=== PATIENT | female | born 1935 | race Hispanic/Latino ===

== ENCOUNTER 2016-10-19 10:53 | Emergency (ER) | payer MEDICARE, OTHER ==
[2016-10-19 10:53] VITALS: BMI 21.2
[2016-10-19 11:00] VITALS: TEMP 98.2
--- NOTE | 2016-10-19 11:11 | ED PDOC ---
Syncope/Near Syncope/Dizziness Time Seen by Provider: 10/19/16 10:57 Chief Complaint (Nursing): Weakness/Neurological Deficit Chief Complaint (Provider): Weakness/Neurological Deficit History Per: Patient History/Exam Limitations: no limitations Onset/Duration Of Symptoms: Hrs (x1) Current Symptoms Are (Timing): Still Present Additional Complaint(s): Lissette Henry is a 81 year old female with a past medical history of [place] Palsy , which resolved completely, as well as a brain tumor presenting to the ED for an evaluation of a new onset of right sided facial weakness occurring 1 hour prior to arrival. The patient denies headache, peripheral weakness, or paresthesia. She reports having difficulty closing her right eye with increased tearing and difficulty smiling on the right side of her face. PMD: Jeffrey El MD Past Medical History Reviewed: Historical Data, Nursing Documentation, Vital Signs Vital Signs: Last Vital Signs Temp 98.2 F 10/19/16 10:58 Pulse 73 10/19/16 10:58 Resp 18 10/19/16 10:58 BP 145/58 L 10/19/16 10:58 Pulse Ox 97 10/19/16 10:58 - Medical History PMH: Anxiety, CHF, Depression Denies: Chronic Kidney Disease Other PMH: brain tumor and resolved clay's palsy - Family History Family History: States: Unknown Family Hx - Home Medications Home Medications: Ambulatory Orders Medication Instructions Recorded ALPRAZolam [Xanax] 1 mg PO DAILY 09/27/15 Digoxin [Digitek] 250 mcg PO DAILY 09/27/15 Modafinil [Modafinil] 200 mg PO DAILY 09/27/15 Olanzapine [Zyprexa] 10 mg PO DAILY 09/27/15 Omeprazole [Omeprazole] 20 mg PO DAILY 09/27/15 Dextran 70/Hypromellose/Pf 1 each OD Q4 #1 droperette 10/19/16 [Artificial Tears Drops] Valacyclovir HCl [Valtrex] 1 gm PO Q8 #30 tablet 10/19/16 predniSONE [predniSONE Tab] 10 mg PO TID #15 tab 10/19/16 - Allergies Allergies/Adverse Reactions: Allergies Allergy/AdvReac Type Severity Reaction Status Date / Time phenytoin [From Dilantin] Allergy RASH Verified 10/19/16 10:58 Review of Systems ROS Statement: Except As Marked, All Systems Reviewed And Found Negative Neurological: Positive for: Weakness (right sided facial weakness ), Other ( difficulty closing right eye with increased tearing and difficulty smiling on right side of face ) Physical Exam - Reviewed Nursing Documentation Reviewed: Yes Vital Signs Reviewed: Yes - Physical Exam Appears: Positive for: Non-toxic, No Acute Distress Head Exam: Positive for: ATRAUMATIC, NORMOCEPHALIC Eye Exam: Positive for: Normal appearance, EOMI, PERRL (PERRLA ) Neck: Positive for: Normal Cardiovascular/Chest: Positive for: Regular Rate, Rhythm. Negative for: Murmur Respiratory: Positive for: Normal Breath Sounds. Negative for: Respiratory Distress Neurologic/Psych: Positive for: Alert, Oriented, Motor/Sensory Deficits (right facial weakness with inability to close right eye; peripheral motor 4/4 bilaterally; sensations intact to upper and lower extremities bilaterally) - ECG O2 Sat by Pulse Oximetry: 97 (RA) Pulse Ox Interpretation: Normal Medical Decision Making Medical Decision Making: Time: 10:57 Impression: Weakness/neurological deficit Plan: * CT Head W/O Contrast * Reevaluation Scribe Attestation: Documented by Tyra Hill, acting as a scribe for Nilton Hewitt MD. Provider Scribe Attestation: All medical record entries made by the Scribe were at my direction and personally dictated by me. I have reviewed the chart and agree that the record accurately reflects my personal performance of the history, physical exam, medical decision making, and the department course for this patient. I have also personally directed, reviewed, and agree with the discharge instructions and disposition. Disposition - Clinical Impression Clinical Impression: Clay's palsy - Patient ED Disposition Is Patient to be Admitted: No Counseled Patient/Family Regarding: Studies Performed, Diagnosis, Need For Followup, Rx Given - Disposition Referrals: Ez Griffith MD [Staff Provider] - Jeffrey El MD [Family Provider] - Disposition: Routine/Home Disposition Time: 12:16 Condition: FAIR Prescriptions: Dextran 70/Hypromellose/Pf [Artificial Tears Drops] 1 each OD Q4 #1 droperette predniSONE [predniSONE Tab] 10 mg PO TID #15 tab Valacyclovir HCl [Valtrex] 1 gm PO Q8 #30 tablet Instructions: Clay Palsy (ED) Forms: [employer] (Chinese)
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
[2016-10-19 12:55] VITALS: BP 123/78; PULSE 78; RESP 19; O2SAT 100
== END 2016-10-19 12:30 | disposition home or self-care (01) ==
LOC: H.ER 10:53
DX: G51.0 Bell's palsy (principal); D32.0 Benign neoplasm of cerebral meninges; F32.9 Major depressive disorder, single episode, unspecified; F41.9 Anxiety disorder, unspecified

== ENCOUNTER 2016-11-06 12:31 | Inpatient (IN) | payer MEDICARE, OTHER ==
[2016-11-06 12:31] VITALS: BMI 21.2
[2016-11-06 12:56] LABS: BASO # 0.1 K/uL (0.0-0.2); BASO % 0.6 % (0.0-2.0); EOS % 0.4 % (0.0-4.0); HEMATOCRIT 41.1 % (34.0-47.0); LYMPH # 3.4 K/uL (1.0-4.3); MEAN CELL VOLUME 88.3 fl (81.0-99.0); MEAN CORPUSCULAR HEMOGLOBIN 30.3 pg (27.0-31.0); MEAN CORPUSCULAR HGB CONC 34.3 g/dL (33.0-37.0); MEAN PLATELET VOLUME 8.3 fl (7.2-11.7); MONO # 0.5 K/uL (0.0-0.8); MONO % 5.5 % (0.0-10.0); NEUT # 4.5 K/uL (1.8-7.0); NEUT % 53.5 % (50.0-75.0); NRBC % 0.1 % (0.0-0.0); WHITE BLOOD COUNT 8.5 K/uL (4.8-10.8)
[2016-11-06 13:05] LABS: ALB/GLOB RATIO 1.7 (1.0-2.1); ALKALINE PHOSPHATASE 94 U/L (38-126); ALT/SGPT 34 U/L (9-52); AST/SGOT 27 U/L (14-36); BILIRUBIN,TOTAL 0.6 mg/dl (0.2-1.3); BLOOD UREA NITROGEN 15 mg/dl (7-17); CALCIUM 9.5 mg/dL (8.4-10.2); CARBON DIOXIDE 25 mmol/L (22-30); CHLORIDE 104 mmol/L (98-107); CHOLESTEROL 213 mg/dL (0-199); GFR AFRICAN-AMERICAN > 60; GLUCOSE,RANDOM 112 mg/dL (65-105); PARTIAL THROMBOPLASTIN TIME 25.7 Seconds (25.6-37.1); POTASSIUM 4.1 MMOL/L (3.6-5.0); SODIUM 141 mmol/l (132-148); TOTAL PROTEIN 6.8 G/DL (6.3-8.2)
--- NOTE | 2016-11-06 13:13 | CT ---
PROCEDURE: CT HEAD WITHOUT CONTRAST. HISTORY: Code stroke. . There is also a history of prior meningioma resection COMPARISON: Comparison made with CT scan of the brain 10/19/2016 TECHNIQUE: Axial computed tomography images were obtained through the head/brain without intravenous contrast. Radiation dose: Total exam DLP = 850.32 mGy-cm. This CT exam was performed using one or more of the following dose reduction techniques: Automated exposure control, adjustment of the mA and/or kV according to patient size, and/or use of iterative reconstruction technique. FINDINGS: HEMORRHAGE: No acute parenchymal, subarachnoid or extra-axial hemorrhage. BRAIN: Re- demonstrated is a large area of partially cystic encephalomalacia/ gliosis involving the left temporal lobe subjacent to a left temporal craniectomy defect. There is localized ex vacuo dilatation of the left temporal horn and left atrium and to a lesser degree of body left lateral ventricle. No definitive evidence of residual and a recurrent tumor. No evidence of large acute infarct however the possibility of a small hyperacute infarct cannot be excluded. Followup studies could be performed if clinically indicated the patient is currently in a treatment window for thrombolytic therapy. . . Multiple of radiopaque densities again seen in the right posterior temporal occipital scalp, suboccipital calvarium and within the right posterior fossa consistent with embolic material. Suspect mild chronic periventricular white matter ischemic changes Moderate generalized volume loss VENTRICLES: As above. No evidence of obstructive hydrocephalus CALVARIUM: As mentioned above, there is a left-sided temporal craniectomy defect and an additional left superior frontal craniotomy defect PARANASAL SINUSES: Unremarkable as visualized. No significant inflammatory changes. MASTOID AIR CELLS: Unremarkable as visualized. No inflammatory changes. OTHER FINDINGS: Changes of bilateral cataract surgery. IMPRESSION: No acute intracranial hemorrhage. . Large area of partially cystic encephalomalacia and gliosis left temporal lobe subjacent to a left temporal craniectomy defect. No evidence of large acute infarct. The possibility of a small hyperacute infarct not excluded. Overall the appearance of the brain is relatively stable. Clinical correlation recommended to determine whether additional imaging is required Suspect mild chronic periventricular white matter ischemic changes. No evidence of large acute infarct. Moderate generalized volume loss with ex vacuo dilatation of the left ventricle particularly the left temporal horn and atrium See above discussion for additional details and findings. Findings discussed with Dr. Hewitt at 12:05 p.m. with written down and read back verification.
--- NOTE | 2016-11-06 13:29 | RAD ---
HISTORY: code stroke COMPARISON: No prior. FINDINGS: LUNGS: Mild bibasilar atelectasis. PLEURA: No significant pleural effusion identified, no pneumothorax apparent. CARDIOVASCULAR: Heart size mildly enlarged. . OSSEOUS STRUCTURES: No significant abnormalities. VISUALIZED UPPER ABDOMEN: Normal. OTHER FINDINGS: None. IMPRESSION: Mild bibasilar atelectasis.
--- NOTE | 2016-11-06 14:48 | ED PDOC ---
HPI:STROKE - Time Time: 12:30 - Historian Historian: Patient, Family - Onset Date: 11/06/16 Time: 09:00 (awoke w symptoms) - Timing Timing: Improved - Location Location: Speech Locate right:: Face - Quality of Pain Quality of Pain:: Sharp - Exacerbated by Exacerbated by:: Nothing - TPA Positive for Contraindication: Yes Reason tPA is not being Administered: awoke with symptoms and NIHSS <4 - Notes: Notes:: 81yo female recently diagnosed w bells palsy, now presents w daughter states awoke this morning w R facial "twitching" and epigastric pain. Per daughter she believes she had some brief slurred speech. Patient has history of multiple medical problems including anxiety for which she takes xanax and has been seeing a psychiatrist for medication adjustment. Patient denies focal extremity weakness, numbness, change in vision or current speech. She denies falls, fever, SOB, chest pain or cough. She only complains of upper abd pain and anxiety currently. Daughter states patient completed course of valtrex and prednisone for bells palsy. NIHSS Stroke Scale - Date/Time Evaluation Performed Date Performed: 11/06/16 Time Performed: 12:30 When Was NIHSS Performed: Baseline - How Severe is the Stroke Level of Consciousness: 0=Alert LOC to Questions: 0=Both comments correct LOC to commands: 0=Obeys both correctly Best Gaze: 0=Normal Visual: 0=No visual loss Facial: 0=Normal Motor Arm - Left: 0=No drift Motor Arm - Right: 0=No drift Motor Leg - Left: 0=No drift Motor Leg - Right: 0=No drift Limb Ataxia: 0=Absent Sensory: 0=Normal Best Language: 0=No aphasia Dysarthia: 1=Mild to moderate slurring Extinction & Inattention (Neglect): 0=Normal, no object Score: 1 rTPA Inclusion/Exclusion - Refusal of Treatment Patient Refused Treatment: No - Inclusion Criteria for Altepase Patient is 18 years or Older: Yes The Clinical Diagnosis of Ischemic Stroke That is Causing a Potentially Disabling Neurological Deficit: No Time of Onset is Well Established to be Less Than 270 Minute Before Treatment Would Begin: No Risk/Benefit Discussed With Patient/Family Member Present: Yes - Exclusion Criteria for Altepase Uncontrolled Hypertension at Time of Treatment (Systolic BP above 185 or Diastolic BP above 110 mmHg): No History of: Brain Tumor Evidence of an Intracranial Hemorrhage: No Past Medical History Vital Signs: Last Vital Signs Temp 98.4 F 11/06/16 14:31 Pulse 54 L 11/06/16 14:31 Resp 16 11/06/16 14:31 BP 173/67 H 11/06/16 14:31 Pulse Ox 97 11/06/16 14:31 - Medical History PMH: Anxiety, CHF, Depression Denies: Chronic Kidney Disease - Family History Family History: States: Unknown Family Hx - Home Medications Home Medications: Ambulatory Orders Medication Instructions Recorded ALPRAZolam [Xanax] 1 mg PO TID 09/27/15 Digoxin [Digitek] 250 mcg PO DAILY 09/27/15 Modafinil [Modafinil] 200 mg PO DAILY 09/27/15 Melatonin [Melatin] 3 mg PO HS 11/06/16 Mirtazapine [Remeron] 30 mg PO HS 11/06/16 Timolol 0.25% Ophth [Timoptic 1 drop RIGHTEYE DAILY 11/06/16 0.25% Ophth Soln] Travoprost [Travatan Z] 1 drop EACHEYE HS 11/06/16 - Allergies Allergies/Adverse Reactions: Allergies Allergy/AdvReac Type Severity Reaction Status Date / Time phenytoin [From Dilantin] Allergy RASH Verified 11/06/16 12:34 Physical Exam - Reviewed Nursing Documentation Reviewed: Yes Vital Signs Reviewed: Yes - Physical Exam Appears: Positive for: Non-toxic (anxious), No Acute Distress Head Exam: Positive for: ATRAUMATIC, NORMAL INSPECTION, NORMOCEPHALIC Skin: Positive for: Normal Color, Warm, DRY Eye Exam: Positive for: EOMI, Normal appearance, PERRL ENT: Positive for: Normal ENT Inspection Neck: Positive for: Normal, Painless ROM Cardiovascular/Chest: Positive for: Regular Rate, Rhythm Respiratory: Positive for: CNT, Normal Breath Sounds Gastrointestinal/Abdominal: Positive for: Bowel Sounds, Soft, Tenderness (mild upper abd tenderness). Negative for: Guarding Back: Positive for: Normal Inspection Extremity: Positive for: Normal ROM Neurologic/Psych: Positive for: Alert, Oriented, Cerebellar Tests (coordination grossly intact). Negative for: Motor/Sensory Deficits (strength 5/5 symmetric) , Aphasia, Facial Droop - Laboratory Results Result Diagrams: 11/06/16 12:40 09/22/17 12:40 - ECG O2 Sat by Pulse Oximetry: 97 Medical Decision Making Medical Decision Making: code stroke initiated at triage. CT brain obtained and report reviewed Ativan 0.5mg given for anxiety. labs reviewed- clinically unremarkable except for mild hyperlipidemia. EKG reviewed, maintaining sinus rhythm 1312 CT Head w/o (code stroke) Dictated by: Dr. Jossue rAshad DO. Impression: 1. No acute intracranial hemorrhage. Large area of partial cystic encephalomalacia and gliosis left temporal lobe subjacent to a left temporal craniectomy defect. No evidence of large acute infarct. The possibility of a small hyperacute infarct not excluded. Overall the appearance of the brain is relatively stable. Clinical correlation recommended to determine whether additional imaging is required. 2. Suspect mild chronic periventricular white matter ischemic changes. No evidence of large acute infarct. 3. Moderate generalized volume loss with ex vacuo dilation of the left ventricle particularly the left temporal horn and atrium. 1549 US Abdomen Complete Dictated by: Dr. Jossue Arshad DO Impression: Cholelithiasis. No evidence of pericholecystic fluid collections or sonographic martin sign. 1615 Patient was given aspirin and will be admitted [facility]/ Dr. Pena's service. Results explained to patient and family. Scribe~Attestation Documented by Lara Marcum acting as a scribe for Nabil Davila MD Provider~Attestation All medical record entries made by the Scribe were at my direction and personally dictated by me. I have reviewed the chart and agree that the record accurately reflects my personal performance of the history, physical exam, medical decision making, and the department course for this patient. I have also personally directed, reviewed, and agree with the discharge instructions and disposition. Disposition - Clinical Impression Clinical Impression: Abdominal pain, TIA (transient ischemic attack) - Patient ED Disposition Is Patient to be Admitted: Yes Counseled Patient/Family Regarding: Studies Performed, Diagnosis, Need For Followup - Disposition Disposition: Transfer of Care Disposition Time: 15:04 Condition: STABLE Forms: [employer] (Palestinian) Patient Signed Over To: Delma Smith Handoff Comments: pending US abd and dispo
--- NOTE | 2016-11-06 15:50 | US ---
HISTORY: upper abd pain COMPARISON: Comparison made with abdominal ultrasound 08/21/[address] scan abdomen pelvis 10/07/2011. TECHNIQUE: Sonographic evaluation of the abdomen. FINDINGS: LIVER: Liver measures approximately 15 cm in CC dimension. . Liver demonstrates smooth contour and normal echotexture. No evidence of hepatic masses or collections seen on images presented. Echogenicity of the liver parenchyma. No mass. No intrahepatic bile duct dilatation. GALLBLADDER: Re- demonstrated are intraluminal mobile gallbladder calculi that exhibit posterior acoustic shadowing. No evidence of pericholecystic fluid collections or sonographic Chavez sign. COMMON BILE DUCT: Measures approximately 5.29 mm. No stones. No dilatation. PANCREAS: Visualized portions of the pancreas appear grossly unremarkable. Note that the pancreatic tail is poorly delineated. . RIGHT KIDNEY: Measures approximately 9.9 x 3.9 x 4.0cm. Normal echogenicity. No calculus, mass, or hydronephrosis. LEFT KIDNEY: Measures approximately 10.2 x 5.4 x 4.7cm. Normal echogenicity. No calculus, mass, or hydronephrosis. SPLEEN: Normal in size and contour. No mass. AORTA: Scattered small calcified plaque changes seen along the abdominal aorta. No evidence of abdominal aortic aneurysm. IVC: Unremarkable. OTHER FINDINGS: None. IMPRESSION: Cholelithiasis. . No evidence of pericholecystic fluid collections or sonographic Chavez sign.
--- NOTE | 2016-11-06 19:11 | CP.PCM.HP ---
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 Reports a h/o chronic diarrheas secondary to her IBS treated recently with Imodium. Denies blood in urine or stools. Also patient's daughter states that pt woke up this morning with R facial "twitching". Per daughter she believes she had some brief slurred speech. Patient has history of multiple medical problems including anxiety for which she takes xanax and has been seeing a psychiatrist for medication adjustment. Patient denies focal extremity weakness, numbness, change in vision or slurred speech. She denies falls, fever, SOB, chest pain or cough. PMD: Dr. El Present on Admission - Present on Admission Any Indicators Present on Admission: No History of DVT/PE: No History of Uncontrolled Diabetes: No Urinary Catheter: No Decubitus Ulcer Present: No Review of Systems - Review of Systems All systems: reviewed and no additional remarkable complaints except (as per HPI ) Past Patient History - Past Medical History & Family History Past Medical History?: Yes - Past Social History Smoking Status: Never Smoked - CARDIAC Hx Congestive Heart Failure: Yes - PULMONARY Hx Respiratory Disorders: No - NEUROLOGICAL Other/Comment: BRAIN HEMANGIOMA - HEENT Hx HEENT Problems: Yes Hx Glaucoma: Yes - RENAL Hx Chronic Kidney Disease: No - ENDOCRINE/METABOLIC Hx Endocrine Disorders: No - HEMATOLOGICAL/ONCOLOGICAL Hx Blood Disorders: No - INTEGUMENTARY Hx Dermatological Problems: No - MUSCULOSKELETAL/RHEUMATOLOGICAL Hx Musculoskeletal Disorders: Yes Hx Osteoarthritis: Yes - GASTROINTESTINAL Hx Gastrointestinal Disorders: No Hx Colostomy: Yes - GENITOURINARY/GYNECOLOGICAL Hx Genitourinary Disorders: No - PSYCHIATRIC Hx Anxiety: Yes Hx Depression: Yes - SURGICAL HISTORY Hx Surgeries: Yes Other/Comment: KNEE AND WRIST SURGERY - ANESTHESIA Hx Anesthesia: Yes Hx Anesthesia Reactions: No Hx Malignant Hyperthermia: No Meds Allergies/Adverse Reactions: Allergies Allergy/AdvReac Type Severity Reaction Status Date / Time phenytoin [From Dilantin] Allergy RASH Verified 11/06/16 12:34 Physical Exam - Constitutional Appears: Non-toxic - ENT Exam ENT Exam: Mucous Membranes Moist - Respiratory Exam Respiratory Exam: Clear to Auscultation Bilateral, NORMAL BREATHING PATTERN. absent: Rales, Rhonchi, Wheezes, Respiratory Distress, Stridor - Cardiovascular Exam Cardiovascular Exam: Bradycardia, REGULAR RHYTHM, +S1, +S2 - GI/Abdominal Exam GI & Abdominal Exam: Normal Bowel Sounds, Soft, Tenderness (epigastric tenderness to palpation). absent: Distended, Guarding, Mass, Rebound, Rigid - Extremities Exam Extremities exam: Positive for: normal inspection. Negative for: calf tenderness, pedal edema - Neurological Exam Neurological exam: Alert, Oriented x3 - Skin Skin Exam: Dry, Intact, Normal Color Results - Vital Signs Recent Vital Signs: Last Vital Signs Temp 98.3 F 11/06/16 17:36 Pulse 58 L 11/06/16 17:36 Resp 18 11/06/16 17:36 BP 165/60 H 11/06/16 17:36 Pulse Ox 99 11/06/16 17:36 - Labs Result Diagrams: 11/06/16 12:40 11/06/16 12:40 Labs: Laboratory Results - last 24 hr 11/06/16 11/06/16 11/06/16 12:37 12:40 12:40 WBC 8.5 RBC 4.66 Hgb 14.1 Hct 41.1 MCV 88.3 MCH 30.3 MCHC 34.3 RDW 14.0 Plt Count 245 MPV 8.3 Neut % (Auto) 53.5 Lymph % (Auto) 40.0 Atkinson % (Auto) 5.5 Eos % (Auto) 0.4 Baso % (Auto) 0.6 Neut # 4.5 Lymph # 3.4 Atkinson # 0.5 Eos # 0.0 Baso # 0.1 PT INR APTT Sodium 141 Potassium 4.1 Chloride 104 Carbon Dioxide 25 Anion Gap 17 BUN 15 Creatinine 0.6 L Est GFR ( Amer) > 60 Est GFR (Non-Af Amer) > 60 POC Glucose (mg/dL) 108 Random Glucose 112 H Hemoglobin A1c Calcium 9.5 Total Bilirubin 0.6 AST 27 ALT 34 Alkaline Phosphatase 94 Troponin I < 0.0120 NT-Pro-B Natriuret Pep 216 Total Protein 6.8 Albumin 4.3 Globulin 2.5 Albumin/Globulin Ratio 1.7 Triglycerides 551 H Cholesterol 213 H LDL Cholesterol Direct 92 HDL Cholesterol 35 Blood Type Blood Type Confirm Antibody Screen BBK History Checked 11/06/16 11/06/16 11/06/16 12:40 12:40 12:40 WBC RBC Hgb Hct MCV MCH MCHC RDW Plt Count MPV Neut % (Auto) Lymph % (Auto) Atkinson % (Auto) Eos % (Auto) Baso % (Auto) Neut # Lymph # Atkinson # Eos # Baso # PT 10.7 INR 1.0 APTT 25.7 Sodium Potassium Chloride Carbon Dioxide Anion Gap BUN Creatinine Est GFR ( Amer) Est GFR (Non-Af Amer) POC Glucose (mg/dL) Random Glucose Hemoglobin A1c 5.4 Calcium Total Bilirubin AST ALT Alkaline Phosphatase Troponin I NT-Pro-B Natriuret Pep Total Protein Albumin Globulin Albumin/Globulin Ratio Triglycerides Cholesterol LDL Cholesterol Direct HDL Cholesterol Blood Type A POSITIVE Blood Type Confirm Antibody Screen Negative BBK History Checked No verified bt 11/06/16 12:58 WBC RBC Hgb Hct MCV MCH MCHC RDW Plt Count MPV Neut % (Auto) Lymph % (Auto) Atkinson % (Auto) Eos % (Auto) Baso % (Auto) Neut # Lymph # Atkinson # Eos # Baso # PT INR APTT Sodium Potassium Chloride Carbon Dioxide Anion Gap BUN Creatinine Est GFR ( Amer) Est GFR (Non-Af Amer) POC Glucose (mg/dL) Random Glucose Hemoglobin A1c Calcium Total Bilirubin AST ALT Alkaline Phosphatase Troponin I NT-Pro-B Natriuret Pep Total Protein Albumin Globulin Albumin/Globulin Ratio Triglycerides Cholesterol LDL Cholesterol Direct HDL Cholesterol Blood Type Blood Type Confirm A POSITIVE Antibody Screen BBK History Checked Assessment & Plan - Assessment and Plan (Free Text) Assessment: 81 yo female with PMHx of Brain Hemangioma s/p surgery, IBS associated with diarrheas, Glaucoma, Hypercholesterolemia, recently Clay's Palsy being admitted for possible TIA and persistent intractable epigastric abdominal pain. Plan: Right facial twitching -Telemetry -no evidence of focal neurological defect at exam -no evidence of facial twitching on exam -will hold aspirin 81 mg for now, because patient's neurological symptoms resolved, and pt has intractable epigastric pain possible 2/2 gastritis vs GERD vs Peptic ulcer - Head CT showed no acute intracranial hemorrhage. No evidence of large acute infarct -Will hold Brain MRI w/o contrast for now because no evidence of acute focal neurological defects noted on exam and NIHSS score 1. Will monitor, and will consider Brain MRI if needed -will call Neuro consult if needed Epigastric pain -EKG showed sinus bradycardia with 1st degree AV block. Will call Cardio if needed possible 2/2 gastritis vs GERD vs Peptic ulcer Troponin I x 1 negative f/u second Troponin I f/u Lipase c/w Protonix 40 mg IV daily Abdominal US showed cholelithiasis with NO evidence of acute cholecystitis GI consult appreciated, f/u recommendations Mixed Hyperlipidemia Triglycerides 551 /elevated total cholesterol 213/ elevated started on statin HgbA1C WNL 5.4 Glaucoma c/w home meds DVT prophylaxis SCDs Heparin 5000 Q12 - Date & Time Date: 11/06/16 Time: 17:40 <Jeffrey El - Last Filed: 11/09/16 07:16> Results - Vital Signs Recent Vital Signs: Last Vital Signs Temp 98.2 F 11/09/16 05:12 Pulse 57 L 11/09/16 05:12 Resp 20 11/09/16 05:12 BP 106/56 L 11/09/16 05:12 Pulse Ox 97 11/09/16 05:12 - Labs Result Diagrams: 11/09/16 05:45 11/09/16 05:45 Labs: Laboratory Results - last 24 hr 11/08/16 11/09/16 11/09/16 05:45 05:45 05:45 WBC 6.4 RBC 3.95 Hgb 11.8 L Hct 35.4 MCV 89.6 MCH 29.8 MCHC 33.3 RDW 14.1 Plt Count 183 Sodium 141 142 Potassium 3.5 L 3.8 Chloride 103 110 H Carbon Dioxide 25 23 Anion Gap 17 13 BUN 13 14 Creatinine 0.7 0.7 Est GFR ( Amer) > 60 > 60 Est GFR (Non-Af Amer) > 60 > 60 Random Glucose 87 86 Calcium 9.5 8.8 Triglycerides 321 H D Cholesterol 165 LDL Cholesterol Direct 88 HDL Cholesterol 33 Digoxin 11/09/16 05:45 WBC RBC Hgb Hct MCV MCH MCHC RDW Plt Count Sodium Potassium Chloride Carbon Dioxide Anion Gap BUN Creatinine Est GFR ( Amer) Est GFR (Non-Af Amer) Random Glucose Calcium Triglycerides Cholesterol LDL Cholesterol Direct HDL Cholesterol Digoxin 0.8 Attending/Attestation - Attestation I have personally seen and examined this patient.: Yes I have fully participated in the care of the patient.: Yes I have reviewed all pertinent clinical information: Yes
[2016-11-06 19:49] LABS: LIPASE 107 U/L (23-300)
[2016-11-06] MEDS: Timolol 0.25% Ophth SOLN OU SCH (21:47)
[2016-11-06] MEDS: Latanoprost 0.005% Opht SOUTION OU SCH (21:47)
[2016-11-07 07:37] LABS: HEMATOCRIT 38.5 % (34.0-47.0); MEAN CELL VOLUME 89.7 fl (81.0-99.0); MEAN CORPUSCULAR HEMOGLOBIN 29.8 pg (27.0-31.0); MEAN CORPUSCULAR HGB CONC 33.3 g/dL (33.0-37.0); WHITE BLOOD COUNT 6.5 K/uL (4.8-10.8)
[2016-11-07 07:44] LABS: BLOOD UREA NITROGEN 17 mg/dl (7-17); CARBON DIOXIDE 25 mmol/L (22-30); CHLORIDE 101 mmol/L (98-107); GFR AFRICAN-AMERICAN > 60; GLUCOSE,RANDOM 93 mg/dL (65-105); POTASSIUM 3.7 MMOL/L (3.6-5.0); SODIUM 138 mmol/l (132-148)
[2016-11-07 08:10] LABS: PARTIAL THROMBOPLASTIN TIME 24.5 Seconds (25.6-37.1)
[2016-11-07] MEDS ORDERED: Timolol 0.25% Ophth SOLN OU SCH (09:00)
[2016-11-07] MEDS: Timolol 0.25% Ophth SOLN OU SCH (09:07)
[2016-11-07] MEDS: Digoxin 250 mcg (0.25 mg) Tab PO SCH (09:11)
[2016-11-07 09:40] LABS: URINE COLOR YELLOW (YELLOW); URINE GLUCOSE (UA) NEGATIVE (Normal)
[2016-11-07 09:41] LABS: RBC URINE 6 /hpf (0-3); URINE BILIRUBIN NEGATIVE (NEGATIVE); URINE BLOOD SMALL (NEGATIVE); URINE KETONE TRACE mg/dL (NEGATIVE); URINE LEUKOCYTE ESTERASE LARGE Leu/uL (Negative); URINE PROTEIN NEGATIVE (NEGATIVE); URINE UROBILINOGEN 0.2 mg/dL (0.2-1.0); WBC URINE 80 /hpf (0-5)
[2016-11-07 09:42] LABS: URINE BACTERIA MANY (<OCC)
--- NOTE | 2016-11-07 11:11 | CP.PCM.PN ---
Subjective - Date & Time of Evaluation Date of Evaluation: 11/07/16 Time of Evaluation: 08:35 - Subjective Subjective: Patient seen and examined in telemetry unit this morning. Still c/o epigastric abdominal pain, however improving. Denies N/V, urinary symptoms, or new episode of diarrheas upon admission. Denies Cp, and SOB. No new episodes of slurred speech or facial twitching. Afebrile, still bradycardic Objective - Vital Signs/Intake and Output Vital Signs (last 24 hours): Temp Pulse Resp BP Pulse Ox 97.5 F L 54 L 20 124/52 L 99 11/07/16 08:22 11/07/16 08:22 11/07/16 08:22 11/07/16 08:22 11/07/16 08:22 - Medications Medications: Current Medications Alprazolam (Xanax) 1 mg PO TID [facility] Last Admin: 11/07/16 09:07 Dose: 1 mg Atorvastatin Calcium (Lipitor) 40 mg PO HS [facility] Last Admin: 11/06/16 21:46 Dose: 40 mg Dicyclomine HCl (Bentyl) 20 mg PO QID [facility] Last Admin: 11/07/16 09:11 Dose: 20 mg Digoxin (Lanoxin) 0.25 mg PO DAILY [facility] Last Admin: 11/07/16 09:11 Dose: Not Given Heparin Sodium (Porcine) (Heparin) 5,000 units SC Q12 [facility] PRN Reason: Protocol Last Admin: 11/07/16 09:11 Dose: 5,000 units Latanoprost (Xalatan Opht) 1 drop OU HS [facility] Last Admin: 11/06/16 21:47 Dose: 1 drop Mirtazapine (Remeron) 30 mg PO HS [facility] Last Admin: 11/06/16 21:46 Dose: 30 mg Modafinil (Provigil) 200 mg PO DAILY [facility] Pantoprazole Sodium (Protonix Inj) 40 mg IVP DAILY [facility] Last Admin: 11/07/16 09:08 Dose: 40 mg Timolol Maleate (Timoptic 0.25% Ophth Soln) 1 drop OU DAILY [facility] Last Admin: 11/07/16 09:07 Dose: 1 drop Tramadol HCl (Ultram) 50 mg PO Q4 PRN PRN Reason: Pain, moderate (4-7) - Labs Labs: 11/07/16 07:00 11/07/16 05:30 PT 11.2 Seconds (9.8-13.1) 11/07/16 05:30 INR 1.1 (0.9-1.2) 11/07/16 05:30 APTT 24.5 Seconds (25.6-37.1) L 11/07/16 05:30 - Skin Additional comments: Constitutional Appears: Non-toxic - ENT Exam ENT Exam: Mucous Membranes Moist - Respiratory Exam Respiratory Exam: Clear to Auscultation Bilateral, NORMAL BREATHING PATTERN. absent: Rales, Rhonchi, Wheezes, Respiratory Distress, Stridor - Cardiovascular Exam Cardiovascular Exam: Bradycardia, REGULAR RHYTHM, +S1, +S2 - GI/Abdominal Exam GI & Abdominal Exam: Normal Bowel Sounds, Soft,mild Tenderness (epigastric tenderness to palpation), . absent: Distended, Guarding, Mass, Rebound, Rigid - Extremities Exam Extremities exam: Positive for: normal inspection. Negative for: calf tenderness, pedal edema - Neurological Exam Neurological exam: Alert, Oriented x3 - Skin Skin Exam: Dry, Intact, Normal Color Assessment and Plan - Assessment and Plan (Free Text) Assessment: 81 yo female with PMHx of Brain Hemangioma s/p surgery, IBS associated with diarrheas, Glaucoma, Hypercholesterolemia, recently Clay's Palsy being admitted for possible TIA and persistent intractable epigastric abdominal pain. Plan: Epigastric pain -EKG showed sinus bradycardia with 1st degree AV block. Will call Cardio if needed. Patient's Cardio is Dr. Tran possible 2/2 gastritis vs GERD Troponin I x 2 negative Lipase negative c/w Protonix 40 mg po daily c/w Bentyl 20 mg PO daily Abdominal US showed cholelithiasis with NO evidence of acute cholecystitis GI consult appreciated, f/u recommendations Right facial twitching NIHSS score 1 -no evidence of focal neurological defect at exam -no evidence of facial twitching on exam -aspirin 81 mg PO daily - Head CT showed no acute intracranial hemorrhage. No evidence of large acute infarct -Neuro consult appreciated, f/u recommendations UTI patient asymptomatic for urinary symptoms on admission positive UA for leukocyte sterase, WBC : 80, small blood f/u urine culture Mixed Hyperlipidemia Triglycerides 551 /elevated total cholesterol 213/ elevated c/w atorvastatin 40 mg HS HgbA1C WNL 5.4 Glaucoma c/w home meds DVT prophylaxis SCDs Heparin 5000 Q12
--- NOTE | 2016-11-07 13:25 | CARD ---
APPROVED REPORT EKG Measurement Heart [id number] <Conclusion> Sinus bradycardia with 1st degree AV block Left axis deviation Septal infarct, age undetermined Abnormal ECG
--- NOTE | 2016-11-07 14:04 | CON ---
DATE: 11/07/2016 NEUROLOGY CONSULTATION CHIEF COMPLAINT: Right facial twitching. HISTORY OF PRESENT ILLNESS: This is a 81-year-old woman, who is well-known to my office with a past medical history of meningioma, status post resection in 2013, irritable bowel syndrome associated with diarrhea, glaucoma, hypercholesterolemia, recently diagnosed and treated with right Clay's palsy with a course of Valtrex and prednisone, but she still has some mild right facial weakness from there and difficulty closing the eyes and some mild spasms at times. She came in for abdominal pain and diarrhea and generalized weakness. She was found to be slightly dehydrated. 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 No focal weakness of the extremities. She is also anxious. She walks around without any difficult at this point. PAST MEDICAL HISTORY: History of meningioma, status post resection in 2013, IBS, history of diabetes, glaucoma, hypercholesterolemia, recent diagnosis, this year with Clay's palsy on the right. REVIEW OF SYSTEMS: A 14-point review of systems is negative except in the HPI. ALLERGIES: NOTED TO PHENYTOIN. SOCIAL HISTORY: No illicit drug use, smoking, or EtOH abuse. MEDICATIONS: Reviewed by nurse per reconciliation sheet. PHYSICAL EXAMINATION VITAL SIGNS: Temperature of 97.5, pulse rate of 54, blood pressure of 134/52, respiratory rate of 20, and oxygen saturation of 99% on room air. GENERAL: The patient is sitting up in bed, in no acute distress. HEENT: Head is atraumatic and normocephalic. PERRLA. Extraocular muscles are intact. NECK: Supple. No JVD. No adenopathy noted. LUNGS: Clear to auscultation. No adventitious sounds. HEART: S1 and S2. Normal rate and rhythm. No murmur, rubs, or gallops. ABDOMEN: Soft, nontender, and nondistended. Bowel sounds are present. EXTREMITIES: No clubbing. No cyanosis. Peripheral pulses are 2+ bilaterally. NEUROLOGIC: The patient is alert and oriented to person, place, month, and year. Recall after 5 minutes is 1/3. Poor attention span. Thought process, she is very anxious. 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 Rest of cranial nerves are intact. Speech is fluent without any errors. Motor exam: Slightly moves all extremities equally. No pronator drift seen. Sensory exam: Light touch pinprick, proprioception, and vibration is intact. DTRs are 1+ throughout. Coordination: [id number] is intact. Gait is slightly wide-based, otherwise normal. Romberg is negative. LABORATORY DATA: Sodium is 138, potassium is 3.7, chloride is 101, carbon dioxide is 25, BUN of 17, creatinine of 0.8, and random glucose is 93. ASSESSMENT AND PLAN: A 81-year-old woman with history of brain meningioma , status post resection in 2013, history of irritable bowel syndrome with diarrhea, glaucoma, hypercholesterolemia, and recent diagnosis of right Clay's palsy treated with Valtrex and prednisone. She having abdominal pain for the past 3 weeks, which is getting worse with no relieving factors and chronic diarrhea secondary to underlying irritable bowel syndrome and has underlying anxiety, was found to have some mild right facial twitching. 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 At this time I recommend: 1. Hydration, since she is slightly dehydrated. 2. Continue with Artificial Tears and eye patch to the right eye given that her Clay's. 3. She has hypertriglyceridemia , continue with Lipitor 40 gm p.o. daily. 4. Avoid any sedative medications. 5. If this spasms get worse, we will give low-dose Klonopin 0.25 mg p.o. at bedtime. At this time, continue current present medical management. No further neurological workup at this time. Thank you for this consult. Ez Griffith MD
[2016-11-07] MEDS: Artificial Tears Opht Soln OU PRN (18:35)
[2016-11-07] MEDS: Latanoprost 0.005% Opht SOUTION OU SCH (21:22)
[2016-11-08 07:15] LABS: BLOOD UREA NITROGEN 13 mg/dl (7-17); CALCIUM 9.5 mg/dL (8.4-10.2); CARBON DIOXIDE 25 mmol/L (22-30); CHLORIDE 103 mmol/L (98-107); GFR AFRICAN-AMERICAN > 60; GLUCOSE,RANDOM 87 mg/dL (65-105); POTASSIUM 3.5 MMOL/L (3.6-5.0); SODIUM 141 mmol/l (132-148)
--- NOTE | 2016-11-08 09:09 | CP.PCM.PN ---
Subjective - Date & Time of Evaluation Date of Evaluation: 11/08/16 Time of Evaluation: 09:07 - Subjective Subjective: no overnight events. tolerating PO. Denies new focal weakness, vision change, slurred speech. Abd pain unchanged. diarrhea x2 yesterday, diarrhea x1 today. Making urine. h/o modafinil x1 year Objective - Vital Signs/Intake and Output Vital Signs (last 24 hours): Temp Pulse Resp BP Pulse Ox 97.9 F 58 L 20 134/66 99 11/08/16 08:11 11/08/16 08:11 11/08/16 08:11 11/08/16 08:11 11/08/16 08:11 - Medications Medications: Current Medications Alprazolam (Xanax) 1 mg PO TID [facility] Last Admin: 11/07/16 18:34 Dose: 1 mg Artificial Tears (Artificial Tears) 2 drop OU Q6 PRN PRN Reason: Dry eyes Last Admin: 11/07/16 18:35 Dose: 2 drop Aspirin (Ecotrin) 81 mg PO DAILY [facility] Last Admin: 11/07/16 15:45 Dose: 81 mg Atorvastatin Calcium (Lipitor) 40 mg PO HS [facility] Last Admin: 11/07/16 21:18 Dose: 40 mg Dicyclomine HCl (Bentyl) 10 mg PO QID [facility] Last Admin: 11/07/16 21:25 Dose: 10 mg Digoxin (Lanoxin) 0.25 mg PO DAILY [facility] Last Admin: 11/07/16 09:11 Dose: Not Given Heparin Sodium (Porcine) (Heparin) 5,000 units SC Q12 [facility] PRN Reason: Protocol Last Admin: 11/07/16 21:18 Dose: 5,000 units Latanoprost (Xalatan Opht) 1 drop OU HS [facility] Last Admin: 11/07/16 21:22 Dose: 1 drop Mirtazapine (Remeron) 30 mg PO HS [facility] Last Admin: 11/07/16 21:19 Dose: 30 mg Modafinil (Provigil) 200 mg PO DAILY [facility] Pantoprazole Sodium (Protonix Ec Tab) 40 mg PO DAILY [facility] Timolol Maleate (Timoptic 0.25% Ophth Soln) 1 drop OU DAILY [facility] Last Admin: 11/07/16 09:07 Dose: 1 drop Tramadol HCl (Ultram) 50 mg PO Q4 PRN PRN Reason: Pain, moderate (4-7) - Labs Labs: 11/07/16 07:00 11/08/16 05:45 PT 11.2 Seconds (9.8-13.1) 11/07/16 05:30 INR 1.1 (0.9-1.2) 11/07/16 05:30 APTT 24.5 Seconds (25.6-37.1) L 11/07/16 05:30 - Constitutional Appears: Non-toxic, No Acute Distress - Head Exam Head Exam: ATRAUMATIC, NORMAL INSPECTION - Eye Exam Eye Exam: EOMI, PERRL - ENT Exam ENT Exam: Mucous Membranes Moist - Neck Exam Neck Exam: Full ROM, Normal Inspection - Respiratory Exam Respiratory Exam: Clear to Ausculation Bilateral, NORMAL BREATHING PATTERN - Cardiovascular Exam Cardiovascular Exam: REGULAR RHYTHM - GI/Abdominal Exam GI & Abdominal Exam: Soft, Tenderness, Hyperactive Bowel Sounds - Extremities Exam Extremities Exam: Normal Inspection - Back Exam Back Exam: NORMAL INSPECTION - Neurological Exam Neurological Exam: Alert, Oriented x3 - Psychiatric Exam Psychiatric exam: Anxious - Skin Skin Exam: Dry, Warm Assessment and Plan - Assessment and Plan (Free Text) Assessment: 81 yo female with PMHx of Brain Hemangioma s/p surgery, IBS associated with diarrheas, Glaucoma, Hypercholesterolemia, recently Clay's Palsy admitted for possible TIA and persistent intractable epigastric abdominal pain. PLAN: No further neuro workup 2/2 h/o bells palsy, awaiting GI recs and changed to PO. c/s Psych for anxiety. c/s cardio for EKG changes Plan: Epigastric pain with h/o IBS -Lipase negative -c/w Protonix 40 mg po daily -c/w Bentyl 20 mg PO daily -Abdominal US showed cholelithiasis with NO evidence of acute cholecystitis -GI consult appreciated, f/u recommendations -c diff neg -stool cx, ova/parasite -c/s psych abnormal EKG -EKG sinus bradycardia with 1st degree AV block -monitor -c/s Cardio Dr. Tran h/o bells palsy with Right facial twitching -NIHSS score 1 -stop aspirin 81 mg PO daily -Head CT showed no acute intracranial hemorrhage. No evidence of large acute infarct -Neuro consult appreciated, f/u recommendations -artificial tears, eye patch right eye abnormal UA -patient asymptomatic -UA +leukocyte sterase, WBC 80, small blood -f/u urine culture Mixed Hyperlipidemia -Triglycerides 551, cholesterol 213 -c/w atorvastatin 40 mg HS -HgbA1C WNL 5.4 Glaucoma -c/w home meds hypokalemia -kdur 20 PO x1 DVT prophylaxis -SCDs -Heparin 5000 Q12
[2016-11-08] MEDS ORDERED: Potassium Chloride 20 mEq ER Tab PO ONE (09:14)
[2016-11-08] MEDS: Timolol 0.25% Ophth SOLN OU SCH (09:50)
[2016-11-08] MEDS: Digoxin 250 mcg (0.25 mg) Tab PO SCH (09:52)
[2016-11-08] MEDS: Pantoprazole 40 mg EC Tab PO SCH (09:52)
[2016-11-08] MEDS: Sodium Chloride 0.9% 1,000 ML IV SCH (12:33)
--- NOTE | 2016-11-08 13:19 | CP.PCM.CON ---
History of Present Illness - History of Present Illness History of Present Illness: THE PATIENT IS A 81 YEAR OLD FEMALE WHO I HAVE KNOWN FOR SEVERAK YEARS AND SHE WAS REFERRED TO ME FOR PALPITATIONS. A WORK-UP INCLUDING A HOLTER MONITOR SHOWED SHORT SVT EPISODES AND SHE WAS STARTED ON DIGOXIN WITH GOOD CONTROL AND IMPROVEMENT OF HER SYMPTOMS. SHE ALSO HAS A HISTORY OF EXTREME ANXIETY, IBS, AND DIZZINESS. SHE WAS SEEN BY PHYSICIANS FOR HER DIZZINESS AND HAD SOME PROCEDURE FOR VASCULAR OCCLUSIONS FOUND ON MRI BUT SHE DID NOT IMPROVE. SHE HAS HAD MILD HYPERLIPIDEMIA IN THE PAST BUT DECLINED TREATMENT. SHE WAS ALSO RECENTLY DIAGNOSED WITH SERRATO'S PALSEY. SHE HAD FACIAL TWITCHING, DROOPING MOUTH AND SLURRED SPEECH AND WAS SEEN IN THE ER ON 11/06/16 AND WAS ADMITTED FOR A POSSIBLE TIA BUT SHE WAS LATER SEEN BY NEUROLOGY WHO THOUGHT THAT HER PROBLEMS WERE DUE TO SERRATO'S PALSY. CARDIOLOGY WAS ASKED TO SEE HER DUE TO HER CARDIAC HISTORY AND SINUS BRADYCARDIA. SHE DENIES CHEST PAIN OR SOB. Past Patient History - Past Medical History & Family History Past Medical History?: Yes - Past Social History Smoking Status: Never Smoked - CARDIAC Hx Congestive Heart Failure: Yes Hx Hypercholesterolemia: Yes - PULMONARY Hx Respiratory Disorders: No - NEUROLOGICAL Other/Comment: Serrato's Palsy, BRAIN HEMANGIOMA - HEENT Hx HEENT Problems: Yes Hx Glaucoma: Yes Other/Comment: Tinnitus - RENAL Hx Chronic Kidney Disease: No - ENDOCRINE/METABOLIC Hx Endocrine Disorders: No - HEMATOLOGICAL/ONCOLOGICAL Hx Blood Disorders: No Hx AIDS: No Hx Human Immunodeficiency Virus (HIV): No - INTEGUMENTARY Hx Dermatological Problems: No - MUSCULOSKELETAL/RHEUMATOLOGICAL Hx Musculoskeletal Disorders: Yes Hx Falls: Yes Hx Osteoporosis: Yes - GASTROINTESTINAL Hx Gastrointestinal Disorders: No - GENITOURINARY/GYNECOLOGICAL Hx Genitourinary Disorders: No - PSYCHIATRIC Hx Anxiety: Yes Hx Depression: Yes Hx Substance Use: No - SURGICAL HISTORY Hx Surgeries: Yes Other/Comment: KNEE AND RIGHT WRIST SURGERY, DURAL AV FISTULA/EMBOLIZATION - ANESTHESIA Hx Anesthesia: Yes Hx Anesthesia Reactions: No Hx Malignant Hyperthermia: No Meds Allergies/Adverse Reactions: Allergies Allergy/AdvReac Type Severity Reaction Status Date / Time phenytoin [From Dilantin] Allergy RASH Verified 11/06/16 12:34 - Medications Medications: Current Medications Alprazolam (Xanax) 1 mg PO TID [facility] Last Admin: 11/08/16 12:29 Dose: 1 mg Artificial Tears (Artificial Tears) 2 drop OU Q6 PRN PRN Reason: Dry eyes Last Admin: 11/07/16 18:35 Dose: 2 drop Atorvastatin Calcium (Lipitor) 40 mg PO HS [facility] Last Admin: 11/07/16 21:18 Dose: 40 mg Dicyclomine HCl (Bentyl) 10 mg PO QID [facility] Last Admin: 11/08/16 12:34 Dose: 10 mg Digoxin (Lanoxin) 0.25 mg PO DAILY [facility] Last Admin: 11/08/16 09:52 Dose: Not Given Heparin Sodium (Porcine) (Heparin) 5,000 units SC Q12 [facility] PRN Reason: Protocol Last Admin: 11/08/16 09:51 Dose: 5,000 units Sodium Chloride (Sodium Chloride 0.9%) 1,000 mls @ 75 mls/hr IV .[id number] [facility] Stop: 11/09/16 11:13 Last Admin: 11/08/16 12:33 Dose: Not Given Latanoprost (Xalatan Opht) 1 drop OU [facility] Last Admin: 11/07/16 21:22 Dose: 1 drop Mirtazapine (Remeron) 30 mg PO HS [facility] Last Admin: 11/07/16 21:19 Dose: 30 mg Modafinil (Provigil) 200 mg PO DAILY [facility] Last Admin: 11/08/16 10:43 Dose: 200 mg Pantoprazole Sodium (Protonix Ec Tab) 40 mg PO DAILY [facility] Last Admin: 11/08/16 09:52 Dose: 40 mg Timolol Maleate (Timoptic 0.25% Ophth Soln) 1 drop OU DAILY [facility] Last Admin: 11/08/16 09:50 Dose: 1 drop Tramadol HCl (Ultram) 50 mg PO Q4 PRN PRN Reason: Pain, moderate (4-7) Physical Exam - Respiratory Exam Respiratory Exam: Clear to Auscultation Bilateral - Cardiovascular Exam Cardiovascular Exam: REGULAR RHYTHM, +S1, +S2 - Extremities Exam Extremities exam: Positive for: normal inspection - Additional Findings Additional findings: 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, R 62 BPM TELEMETRY SHOW PERIODS OF SINUS BRADYARDIA IN THE HIGH 40'S AND 50'S AT REST EKG 11/06/16 SHOWED SINUS RHYTHM, R 57 AT REST TROPONINS NEGATIVE CHOL 213 AND TRIGLYCERIDES 551 BUT THEY WERE NOT FASTING Results - Vital Signs Recent Vital Signs: Last Vital Signs Temp 98 F 11/08/16 12:21 Pulse 58 L 11/08/16 12:21 Resp 18 11/08/16 12:21 BP 117/53 L 11/08/16 12:21 Pulse Ox 98 11/08/16 12:21 - Labs Result Diagrams: 11/07/16 07:00 11/08/16 05:45 Labs: Laboratory Results - last 24 hr 11/07/16 11/08/16 11:39 05:45 Sodium 141 Potassium 3.5 L Chloride 103 Carbon Dioxide 25 Anion Gap 17 BUN 13 Creatinine 0.7 Est GFR ( Amer) > 60 Est GFR (Non-Af Amer) > 60 Random Glucose 87 Calcium 9.5 C. difficile Ag & Toxin Negative Assessment & Plan - Assessment and Plan (Free Text) Assessment: HISTORY OF SHORT SVT EPISODES WITH IMPROVEMENT ON DIGOXIN SINUS BRADYCARDIA AT REST IS OK AND HER HEART RATE WAS IN THE 60'S WHEN I SAW HER TODAY HYPERLIPIDEMIA SERRATO'S PALSEY ANXIETY IBS Plan: THE PATIENT IS ON 4N ON TELEMETRY CONTINUE DIGOXIN AND ATORVASTATIN WILL REPEAT LIPID PROFILE IN AM THE LIPID PROFILE WAS NOT FASTING DIGOXIN LEVEL IN AM NEUROLOGY FOLLOWING FOR SERRATO'S PALSY
[2016-11-08] MEDS: Artificial Tears Opht Soln OU PRN (17:04)
[2016-11-08] MEDS: Lactobacillus Acidophilus 500 MU Cap PO SCH (17:04)
[2016-11-08 19:11] VITALS: RESP 20
[2016-11-08] MEDS: Latanoprost 0.005% Opht SOUTION OU SCH (22:15)
[2016-11-09] MEDS: Sodium Chloride 0.9% 1,000 ML IV SCH (00:58)
--- NOTE | 2016-11-09 01:45 | DS ---
REFERRED BY: Dr. Houser. HISTORY OF PRESENT ILLNESS: This is a 81-year-old woman, who was known to my partner, Dr. , from past hospitalizations and office visits, who was referred after being admitted with persistent epigastric pain, discomfort, as well as loose stool. The patient has a longstanding history of this, was diagnosed according to the family members at the bedside, and the patient herself with irritable bowel syndrome with the diarrhea form and has tried several therapies including Viberzi in the past with limited if any success. The patient has had for the last 2 weeks severe pain and discomfort in the epigastric area, prompting her to come to the ER. In the ER, an ultrasound was done that showed gallstones, but no evidence of any cholecystitis sonographically nor on the laboratories. MEDICATIONS: Her medications review, she is on a number of medications. ALLERGIES: SHE IS ALLERGIC TO PHENYTOIN. PAST MEDICAL HISTORY: Anxiety, depression, psychiatric illness. SURGICAL HISTORY: Noncontributory. FAMILY HISTORY: Noncontributory. SOCIAL HISTORY: No alcohol, tobacco, or drug use. PHYSICAL EXAMINATION: GENERAL: A well-developed, thin, elderly woman, awake, alert and oriented x3, but quite anxious and nervous. Complaining of epigastric pain. VITAL SIGNS: Stable. She is afebrile. ABDOMEN: Soft. Positive bowel sounds. Nondistended. There is some tenderness to deep palpation in the epigastric area, but no Chavez's sign was elicited. LABORATORY DATA: CBC, SMA-7, LFTs, lipase are all unremarkable, however, triglycerides are markedly elevated at 551 with cholesterol 213. Her ultrasound did show the gallstones. IMPRESSION AND PLAN: A 81-year-old woman with longstanding history of irritable bowel syndrome, diarrhea form, psychiatric illness with anxiety, who was referred for evaluation. She was started on Bentyl 20 mg q.i.d., states that the Bentyl that was given to her this morning for the first time, she has never been on it was helpful in alleviating some of her pain and discomfort. However, she does have a history of glaucoma and dry eyes; therefore, I reduced the dose to 10 mg q.i.d. to not exacerbate any glaucoma attacks or crisis, and certainly I am going to use that for the next couple of days. At that point, it would have to be changed to a p.r.n. basis because of its side effects. Certainly, this is a chronic illness without any cure, meaning the irritable bowel syndrome, however, if the dicyclomine is helpful, we can continue to use that. Regarding the gallstones that may be contributing to her pain and discomfort, although certainly she could be suffering from gallstones causing biliary colic as well as having irritable bowel syndrome symptomatology, and therefore would not recommend at this point in time given the normalcy of her labs, any time for laparoscopic cholecystectomy. I discussed all those with the patient and her daughter and they understood and agreed and will follow along with you. Jasper Salazar MD
[2016-11-09 06:26] LABS: BLOOD UREA NITROGEN 14 mg/dl (7-17); CALCIUM 8.8 mg/dL (8.4-10.2); CARBON DIOXIDE 23 mmol/L (22-30); CHLORIDE 110 mmol/L (98-107); CHOLESTEROL 165 mg/dL (0-199); GFR AFRICAN-AMERICAN > 60; GLUCOSE,RANDOM 86 mg/dL (65-105); HEMATOCRIT 35.4 % (34.0-47.0); MEAN CELL VOLUME 89.6 fl (81.0-99.0); MEAN CORPUSCULAR HEMOGLOBIN 29.8 pg (27.0-31.0); MEAN CORPUSCULAR HGB CONC 33.3 g/dL (33.0-37.0); POTASSIUM 3.8 MMOL/L (3.6-5.0); RED CELL DISTRIBUTION WIDTH 14.1 % (11.5-14.5); SODIUM 142 mmol/l (132-148); WHITE BLOOD COUNT 6.4 K/uL (4.8-10.8)
[2016-11-09] MEDS: Artificial Tears Opht Soln OU PRN (08:58)
[2016-11-09] MEDS: Lactobacillus Acidophilus 500 MU Cap PO SCH ×2 (08:59→17:32)
[2016-11-09] MEDS: Digoxin 250 mcg (0.25 mg) Tab PO SCH (09:00)
[2016-11-09] MEDS: Pantoprazole 40 mg EC Tab PO SCH (09:01)
[2016-11-09] MEDS: Timolol 0.25% Ophth SOLN OU SCH (09:11)
[2016-11-09 09:13] VITALS: PULSE 56
--- NOTE | 2016-11-09 11:54 | CP.PCM.PN ---
Subjective - Date & Time of Evaluation Date of Evaluation: 11/09/16 Time of Evaluation: 09:30 - Subjective Subjective: still with diarrhea Objective - Vital Signs/Intake and Output Vital Signs (last 24 hours): Temp Pulse Resp BP Pulse Ox 97.9 F 59 L 20 137/58 L 98 11/09/16 08:16 11/09/16 08:16 11/09/16 08:16 11/09/16 08:16 11/09/16 08:16 - Medications Medications: Current Medications Alprazolam (Xanax) 1 mg PO TID [facility] Last Admin: 11/09/16 09:11 Dose: 1 mg Artificial Tears (Artificial Tears) 2 drop OU Q6 PRN PRN Reason: Dry eyes Last Admin: 11/09/16 08:58 Dose: 2 drop Atorvastatin Calcium (Lipitor) 40 mg PO HS [facility] Last Admin: 11/08/16 22:16 Dose: 40 mg Dicyclomine HCl (Bentyl) 10 mg PO QID [facility] Last Admin: 11/09/16 09:00 Dose: 10 mg Digoxin (Lanoxin) 0.25 mg PO DAILY [facility] Last Admin: 11/09/16 09:00 Dose: Not Given Heparin Sodium (Porcine) (Heparin) 5,000 units SC Q12 [facility] PRN Reason: Protocol Last Admin: 11/09/16 09:00 Dose: 5,000 units Lactobacillus Acidophilus (Bacid Acidophilus) 1 cap PO BID [facility] Last Admin: 11/09/16 08:59 Dose: 1 cap Latanoprost (Xalatan Opht) 1 drop OU [facility] Last Admin: 11/08/16 22:15 Dose: 1 drop Mirtazapine (Remeron) 30 mg PO HS [facility] Last Admin: 11/08/16 22:14 Dose: 30 mg Modafinil (Provigil) 200 mg PO DAILY [facility] Last Admin: 11/09/16 09:15 Dose: Not Given Pantoprazole Sodium (Protonix Ec Tab) 40 mg PO DAILY [facility] Last Admin: 11/09/16 09:01 Dose: 40 mg Timolol Maleate (Timoptic 0.25% Ophth Soln) 1 drop OU DAILY [facility] Last Admin: 11/09/16 09:11 Dose: 1 drop Tramadol HCl (Ultram) 50 mg PO Q4 PRN PRN Reason: Pain, moderate (4-7) - Labs Labs: 11/09/16 05:45 11/09/16 05:45 PT 11.2 Seconds (9.8-13.1) 11/07/16 05:30 INR 1.1 (0.9-1.2) 11/07/16 05:30 APTT 24.5 Seconds (25.6-37.1) L 11/07/16 05:30 - Head Exam Head Exam: NORMOCEPHALIC - Eye Exam Eye Exam: Normal appearance - Neck Exam Neck Exam: Normal Inspection - Respiratory Exam Respiratory Exam: NORMAL BREATHING PATTERN - Cardiovascular Exam Cardiovascular Exam: REGULAR RHYTHM - GI/Abdominal Exam GI & Abdominal Exam: Distended, Soft, Normal Bowel Sounds Assessment and Plan - Assessment and Plan (Free Text) Assessment: 81 yo female with diarrhea trial of questran
[2016-11-09 12:49] VITALS: PULSE 57
--- NOTE | 2016-11-09 13:22 | CP.PCM.PN ---
Subjective - Date & Time of Evaluation Date of Evaluation: 11/09/16 Time of Evaluation: 07:30 - Subjective Subjective: Patient seen and examined in telemetry with attending this morning. Still c/o epigastric abdominal pain, however is improving. Denies N/V and tolerating diet. Still c/o chronic episodes of diarrheas. Afebrile, intermittent bradycardia Objective - Vital Signs/Intake and Output Vital Signs (last 24 hours): Temp Pulse Resp BP Pulse Ox 98.2 F 57 L 20 101/49 L 98 11/09/16 12:48 11/09/16 12:48 11/09/16 12:48 11/09/16 12:48 11/09/16 12:48 - Medications Medications: Current Medications Alprazolam (Xanax) 1 mg PO TID [facility] Last Admin: 11/09/16 09:11 Dose: 1 mg Artificial Tears (Artificial Tears) 2 drop OU Q6 PRN PRN Reason: Dry eyes Last Admin: 11/09/16 08:58 Dose: 2 drop Atorvastatin Calcium (Lipitor) 40 mg PO HS [facility] Last Admin: 11/08/16 22:16 Dose: 40 mg Cholestyramine Resin (Questran) 4 gm PO DAILY [facility] Dicyclomine HCl (Bentyl) 10 mg PO QID [facility] Last Admin: 11/09/16 09:00 Dose: 10 mg Digoxin (Lanoxin) 0.25 mg PO DAILY [facility] Last Admin: 11/09/16 09:00 Dose: Not Given Heparin Sodium (Porcine) (Heparin) 5,000 units SC Q12 [facility] PRN Reason: Protocol Last Admin: 11/09/16 09:00 Dose: 5,000 units Lactobacillus Acidophilus (Bacid Acidophilus) 1 cap PO BID [facility] Last Admin: 11/09/16 08:59 Dose: 1 cap Latanoprost (Xalatan Opht) 1 drop OU HS [facility] Last Admin: 11/08/16 22:15 Dose: 1 drop Mirtazapine (Remeron) 30 mg PO HS [facility] Last Admin: 11/08/16 22:14 Dose: 30 mg Modafinil (Provigil) 200 mg PO DAILY [facility] Last Admin: 11/09/16 09:15 Dose: Not Given Pantoprazole Sodium (Protonix Ec Tab) 40 mg PO DAILY [facility] Last Admin: 11/09/16 09:01 Dose: 40 mg Timolol Maleate (Timoptic 0.25% Ophth Soln) 1 drop OU DAILY [facility] Last Admin: 11/09/16 09:11 Dose: 1 drop Tramadol HCl (Ultram) 50 mg PO Q4 PRN PRN Reason: Pain, moderate (4-7) - Labs Labs: 11/09/16 05:45 11/09/16 05:45 PT 11.2 Seconds (9.8-13.1) 11/07/16 05:30 INR 1.1 (0.9-1.2) 11/07/16 05:30 APTT 24.5 Seconds (25.6-37.1) L 11/07/16 05:30 - Constitutional Appears: No Acute Distress - ENT Exam ENT Exam: Mucous Membranes Moist - Respiratory Exam Respiratory Exam: Clear to Ausculation Bilateral, NORMAL BREATHING PATTERN - Cardiovascular Exam Cardiovascular Exam: Bradycardia, REGULAR RHYTHM, +S1, +S2 - GI/Abdominal Exam GI & Abdominal Exam: Soft, Tenderness (very mild tenderness to palpation of peigastrium, but no rebound tenderness noted), Normal Bowel Sounds. absent: Distended, Guarding, Rigid - Extremities Exam Extremities Exam: Normal Inspection. absent: Calf Tenderness, Pedal Edema - Neurological Exam Neurological Exam: Alert, Awake, Oriented x3 - Skin Skin Exam: Dry, Intact, Normal Color Assessment and Plan - Assessment and Plan (Free Text) Assessment: 81 yo female with PMHx of Brain Hemangioma s/p surgery, IBS associated with diarrheas, Glaucoma, Hypercholesterolemia, recently Clay's Palsy admitted for possible TIA and persistent intractable epigastric abdominal pain. Plan: PLAN: No further neuro workup 2/2 h/o bells palsy, awaiting GI recs and changed to PO. c/s Psych for anxiety. c/s cardio for EKG changes Plan: Epigastric pain with h/o IBS -Lipase negative -c/w Protonix 40 mg po daily -c/w Bentyl 20 mg PO daily -Abdominal US showed cholelithiasis with NO evidence of acute cholecystitis -f/u GI recommendations -c diff neg -stool cx, ova/parasite -c/s psych abnormal EKG -EKG sinus bradycardia with 1st degree AV block -Digoxin level 0.8/wnl -monitor -c/s Cardio Dr. Tran h/o bells palsy with Right facial twitching -NIHSS score 1 -stop aspirin 81 mg PO daily -s/w statin -as per neuro avoid sedative meds -as per Neuro if spasm get worse give low dose of klonopin 0.25 mg -Head CT showed no acute intracranial hemorrhage. No evidence of large acute infarct -Neuro on board, f/u Dr. Griffith rec -artificial tears, eye patch right eye abnormal UA -patient asymptomatic -UA +leukocyte sterase, WBC 80, small blood -f/u urine culture Mixed Hyperlipidemia f/u repeat lipid profile -Triglycerides 551, cholesterol 213 -c/w atorvastatin 40 mg HS -HgbA1C WNL 5.4 Glaucoma -c/w home meds hypokalemia -kdur 20 PO x1 DVT prophylaxis -SCDs -Heparin 5000 Q12
--- NOTE | 2016-11-09 15:23 | CP.PCM.PN ---
Subjective - Date & Time of Evaluation Date of Evaluation: 11/09/16 Time of Evaluation: 13:30 - Subjective Subjective: NO NEW COMPLAINTS NO CHEST PAIN OR SOB Objective - Vital Signs/Intake and Output Vital Signs (last 24 hours): Temp Pulse Resp BP Pulse Ox 98.2 F 57 L 20 101/49 L 98 11/09/16 12:48 11/09/16 12:48 11/09/16 12:48 11/09/16 12:48 11/09/16 12:48 - Medications Medications: Current Medications Alprazolam (Xanax) 1 mg PO TID [facility] Last Admin: 11/09/16 13:39 Dose: 1 mg Artificial Tears (Artificial Tears) 2 drop OU Q6 PRN PRN Reason: Dry eyes Last Admin: 11/09/16 08:58 Dose: 2 drop Atorvastatin Calcium (Lipitor) 40 mg PO HS [facility] Last Admin: 11/08/16 22:16 Dose: 40 mg Cholestyramine Resin (Questran) 4 gm PO DAILY [facility] Dicyclomine HCl (Bentyl) 10 mg PO QID [facility] Last Admin: 11/09/16 13:38 Dose: 10 mg Digoxin (Lanoxin) 0.25 mg PO DAILY [facility] Last Admin: 11/09/16 09:00 Dose: Not Given Heparin Sodium (Porcine) (Heparin) 5,000 units SC Q12 [facility] PRN Reason: Protocol Last Admin: 11/09/16 09:00 Dose: 5,000 units Lactobacillus Acidophilus (Bacid Acidophilus) 1 cap PO BID [facility] Last Admin: 11/09/16 08:59 Dose: 1 cap Latanoprost (Xalatan Opht) 1 drop OU HS [facility] Last Admin: 11/08/16 22:15 Dose: 1 drop Mirtazapine (Remeron) 30 mg PO HS [facility] Last Admin: 11/08/16 22:14 Dose: 30 mg Modafinil (Provigil) 200 mg PO DAILY [facility] Last Admin: 11/09/16 09:15 Dose: Not Given Pantoprazole Sodium (Protonix Ec Tab) 40 mg PO DAILY [facility] Last Admin: 11/09/16 09:01 Dose: 40 mg Timolol Maleate (Timoptic 0.25% Ophth Soln) 1 drop OU DAILY [facility] Last Admin: 11/09/16 09:11 Dose: 1 drop Tramadol HCl (Ultram) 50 mg PO Q4 PRN PRN Reason: Pain, moderate (4-7) - Labs Labs: 11/09/16 05:45 11/09/16 05:45 PT 11.2 Seconds (9.8-13.1) 11/07/16 05:30 INR 1.1 (0.9-1.2) 11/07/16 05:30 APTT 24.5 Seconds (25.6-37.1) L 11/07/16 05:30 - Respiratory Exam Respiratory Exam: Clear to Ausculation Bilateral - Cardiovascular Exam Cardiovascular Exam: REGULAR RHYTHM, +S1, +S2 - Extremities Exam Extremities Exam: Normal Inspection Assessment and Plan - Assessment and Plan (Free Text) Assessment: HX OF SHORT SVT EPISODES-NOW IN SINUS RHYTHM BELLS'S PALSY IBS WITH DIARRHEA HYPERLIPIDEMIA Plan: CONTINUE DIGOXIN AND ATORVASTATIN OK TO TRANSFER PATIENT TO REGULAR FLOOR
[2016-11-09 17:07] VITALS: BP 105/55; TEMP 98.4; O2SAT 97
[2016-11-10] MEDS ORDERED: Cholestyramine 4 gm/Pkt UD PO SCH (09:00)
== END 2016-11-09 20:00 | disposition home or self-care (01) | DRG 392 ==
LOC: H.ER 12:31 → H.ERHOLD 16:06 → H.TEL 21:14 → OBSVTOIN 11-07 16:06
PROVIDERS: ADMIT Family Medicine; ATTEND Family Medicine
DX: K58.0 Irritable bowel syndrome with diarrhea (principal); I50.9 Heart failure, unspecified; R00.1 Bradycardia, unspecified; E86.0 Dehydration; E11.9 Type 2 diabetes mellitus without complications; G51.0 Bell's palsy; H40.9 Unspecified glaucoma; K80.20 Calculus of gallbladder without cholecystitis without obstruction; F41.9 Anxiety disorder, unspecified; E78.00 Pure hypercholesterolemia, unspecified; E78.2 Mixed hyperlipidemia; E78.1 Pure hyperglyceridemia; H04.129 Dry eye syndrome of unspecified lacrimal gland; I44.0 Atrioventricular block, first degree; E87.6 Hypokalemia; F32.9 Major depressive disorder, single episode, unspecified; R82.99 Other abnormal findings in urine

== ENCOUNTER 2017-01-26 12:26 | Emergency (ER) | payer MEDICARE, OTHER ==
[2017-01-26 12:26] VITALS: PULSE 56; BMI 21.2
[2017-01-26 12:46] VITALS: TEMP 98.4; O2SAT 98
[2017-01-26 14:18] LABS: HEMATOCRIT 36.2 % (34.0-47.0); MEAN CELL VOLUME 87.9 fl (81.0-99.0); MEAN CORPUSCULAR HEMOGLOBIN 29.9 pg (27.0-31.0); RED CELL DISTRIBUTION WIDTH 13.4 % (11.5-14.5); WHITE BLOOD COUNT 5.5 K/uL (4.8-10.8)
[2017-01-26 14:27] LABS: ALB/GLOB RATIO 1.6 (1.0-2.1); ALKALINE PHOSPHATASE 71 U/L (38-126); ALT/SGPT 34 U/L (9-52); AST/SGOT 20 U/L (14-36); BILIRUBIN,TOTAL 0.4 mg/dl (0.2-1.3); BLOOD UREA NITROGEN 17 mg/dl (7-17); CALCIUM 9.5 mg/dL (8.4-10.2); CARBON DIOXIDE 30 mmol/L (22-30); CHLORIDE 103 mmol/L (98-107); GFR AFRICAN-AMERICAN > 60; GLUCOSE,RANDOM 133 mg/dL (65-105); POTASSIUM 4.2 MMOL/L (3.6-5.0); SODIUM 141 mmol/l (132-148); TOTAL PROTEIN 6.8 G/DL (6.3-8.2)
[2017-01-26] MEDS ORDERED: Iodixanol 320 MG/ML 100 ML BOTTLE IV ONE (14:36)
--- NOTE | 2017-01-26 15:42 | CT ---
PROCEDURE: CT Angiography of the neck with contrast HISTORY: pulsatile area, left neck COMPARISON: None available. TECHNIQUE: Contiguous axial images of the neck were obtained from the level of the skull-base to the superior mediastinum in the arteriographic phase of enhancement. Coronal and sagittal reformats or also generated. IV contrast dose: Visipaque 320, 95 cc Radiation Dose - DLP: 347.43 mGy-cm This CT exam was performed using one or more of the following dose reduction techniques: Automated exposure control, adjustment of the mA and/or kV according to patient size, and/or use of iterative reconstruction technique. FINDINGS: No arteriovascular malformation or aneurysm of the neck is seen throughout the examination. Limited aortic arch atherosclerosis is appreciated without aneurysm appreciated. RIGHT CAROTID ARTERIES: Common Carotid Artery: Mild ectasis of the right common carotid artery is appreciated without stenosis. Carotid Bifurcation: Normal. Internal Carotid Artery:Normal. External Carotid Artery (proximal branches): Normal. LEFT CAROTID ARTERIES: Common Carotid Artery: Normal. Carotid Bifurcation: Normal. Internal Carotid Artery:Normal. External Carotid Artery (proximal branches): Normal. VERTEBRAL ARTERIES: Right Vertebral Artery: Normal. Left Vertebral Artery: Normal. OTHER FINDINGS: Inhomogeneous enhancement is seen the right greater than left thyroid lobes with underlying nodules likely though not clearly defined in this exam. Shotty right supraclavicular fossa lymph nodes are identified. IMPRESSION: Unremarkable CT Angiography of the neck. Limited atherosclerotic changes seen in the thoracic aorta without aneurysm or stenosis. Incidental right supraclavicular fossa shotty lymph nodes.
--- NOTE | 2017-01-26 17:08 | ED PDOC ---
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 Pt denies SOB, chest pain, headache, weakness, etc. Past Medical History Reviewed: Historical Data, Nursing Documentation, Vital Signs Vital Signs: Last Vital Signs Temp 98.4 F 01/26/17 12:43 Pulse 79 01/26/17 12:43 Resp 18 01/26/17 12:43 BP 146/54 L 01/26/17 12:43 Pulse Ox 98 01/26/17 12:43 - Medical History PMH: Anxiety, Depression, Hypercholesterolemia, Osteoporosis Denies: HIV, Chronic Kidney Disease - Surgical History Surgical History: No Surg Hx - Family History Family History: States: Unknown Family Hx - Living Arrangements Living Arrangements: With Family - Home Medications Home Medications: Ambulatory Orders Medication Instructions Recorded ALPRAZolam [Xanax] 1 mg PO TID 09/27/15 Digoxin [Digitek] 250 mcg PO DAILY 09/27/15 Modafinil 200 mg PO DAILY 09/27/15 Melatonin [Melatin] 3 mg PO HS 11/06/16 Mirtazapine [Remeron] 30 mg PO HS 11/06/16 Timolol 0.25% Ophth [Timoptic 1 drop RIGHTEYE DAILY 11/06/16 0.25% Ophth Soln] Travoprost [Travatan Z] 1 drop EACHEYE HS 11/06/16 Atorvastatin [Lipitor] 40 mg PO HS #30 tab 11/09/16 Dicyclomine [Bentyl] 10 mg PO QID #120 cap 11/09/16 Pantoprazole [Protonix EC Tab] 40 mg PO DAILY #30 ect 11/09/16 - Allergies Allergies/Adverse Reactions: Allergies Allergy/AdvReac Type Severity Reaction Status Date / Time phenytoin [From Dilantin] Allergy RASH Verified 11/06/16 12:34 Review of Systems ROS Statement: Except As Marked, All Systems Reviewed And Found Negative Constitutional: Negative for: Fever, Chills Cardiovascular: Negative for: Chest Pain, Palpitations Respiratory: Negative for: Shortness of Breath Gastrointestinal: Negative for: Nausea, Vomiting, Abdominal Pain Musculoskeletal: Positive for: Other (Neck abnormality ). Negative for: Neck Pain Physical Exam - Reviewed Nursing Documentation Reviewed: Yes Vital Signs Reviewed: Yes - Physical Exam Appears: Positive for: Well, Non-toxic, No Acute Distress Head Exam: Positive for: ATRAUMATIC, NORMAL INSPECTION, NORMOCEPHALIC Skin: Positive for: Normal Color, Warm, DRY Eye Exam: Positive for: Normal appearance ENT: Positive for: Normal ENT Inspection Neck: Positive for: Normal, Painless ROM, Supple ((+) pulsatile area of the left neck when laying down. ) Cardiovascular/Chest: Positive for: Regular Rate, Rhythm Respiratory: Positive for: CNT, Normal Breath Sounds Gastrointestinal/Abdominal: Positive for: Normal Exam, Bowel Sounds, Soft Back: Positive for: Normal Inspection Extremity: Positive for: Normal ROM Neurologic/Psych: Positive for: Alert, Oriented - Laboratory Results Result Diagrams: 01/26/17 14:12 01/26/17 14:12 - ECG O2 Sat by Pulse Oximetry: 98 Pulse Ox Interpretation: Normal Medical Decision Making Medical Decision Making: CT angio of the neck normal. CXR normal. Pt seen and evaluated by Dr. Miranda, disposition discussed. Disposition - Clinical Impression Clinical Impression: Jugular venous distension (JVD) - Patient ED Disposition Is Patient to be Admitted: No Counseled Patient/Family Regarding: Diagnosis, Need For Followup - Disposition Disposition: Routine/Home Disposition Time: 17:12 Condition: GOOD Additional Instructions: Please follow-up with PMD.
[2017-01-26 17:31] VITALS: BP 124/58; PULSE 80; RESP 19
--- NOTE | 2017-01-26 17:55 | RAD ---
HISTORY: JVD, left COMPARISON: 11/06/2016. TECHNIQUE: Chest PA and lateral FINDINGS: LUNGS: Hyperinflation, manifestations of COPD. No active pulmonary disease. PLEURA: No significant pleural effusion identified. No pneumothorax apparent. CARDIOVASCULAR: No radiographic findings to suggest acute or significant cardiovascular disease. OSSEOUS STRUCTURES: No significant abnormalities. VISUALIZED UPPER ABDOMEN: Contrast in both collecting systems/ kidneys related to recent CT angiogram. Normal. OTHER FINDINGS: None. IMPRESSION: No active disease. No significant interval change compared to the prior examination(s).
--- NOTE | 2017-01-28 19:35 | CARD ---
APPROVED REPORT EKG Measurement Heart [id number] <Conclusion> Sinus rhythm Left anterior fascicular block Septal infarct, age undetermined Abnormal ECG
== END 2017-01-26 17:30 | disposition home or self-care (01) ==
LOC: H.ER 12:26
DX: I87.8 Other specified disorders of veins (principal); E78.00 Pure hypercholesterolemia, unspecified; F32.9 Major depressive disorder, single episode, unspecified; F41.9 Anxiety disorder, unspecified; M81.0 Age-related osteoporosis without current pathological fracture
CPT/HCPCS: 70498; 71020; 80053; 85027; 93005; 99282; Q9967

== ENCOUNTER 2017-06-17 09:12 | Emergency (ER) | payer MEDICARE, OTHER ==
[2017-06-17 09:13] VITALS: PULSE 56
[2017-06-17 09:18] VITALS: BMI 22.2
--- NOTE | 2017-06-17 09:51 | ED PDOC ---
HPI: Female Pain Time Seen by Provider: 06/17/17 09:34 Chief Complaint (Nursing): Female Genitourinary History Per: Patient History/Exam Limitations: no limitations Onset/Duration Of Symptoms: Other (x since this morning) Current Symptoms Are (Timing): Still Present Additional Complaint(s): 82-year-old female, with a history of high cholesterol, anxiety and gallstones, presents to ED with hematuria and dysuria since this morning. (-) fever, (-) chills, (-) back pain, (-) nausea, (-) vomiting. PMD: Jeffrey El Past Medical History Reviewed: Historical Data, Nursing Documentation, Vital Signs Vital Signs: Last Vital Signs Temp 97.4 F L 06/17/17 09:18 Pulse 74 06/17/17 09:18 Resp 16 06/17/17 09:18 BP 129/66 06/17/17 09:18 Pulse Ox 97 06/17/17 09:18 - Medical History PMH: Anxiety, CHF, Depression, Hypercholesterolemia, Osteoporosis Denies: HIV, Chronic Kidney Disease - Family History Family History: States: Unknown Family Hx - Social History Current smoker - smoking cessation education provided: No Alcohol: None Drugs: Denies - Home Medications Home Medications: Ambulatory Orders Medication Instructions Recorded ALPRAZolam [Xanax] 1 mg PO TID 09/27/15 Digoxin [Digitek] 250 mcg PO DAILY 09/27/15 Modafinil 200 mg PO DAILY 09/27/15 Melatonin [Melatin] 3 mg PO HS 11/06/16 Mirtazapine [Remeron] 30 mg PO HS 11/06/16 Timolol 0.25% Ophth [Timoptic 1 drop RIGHTEYE DAILY 11/06/16 0.25% Ophth Soln] Travoprost [Travatan Z] 1 drop EACHEYE HS 11/06/16 Atorvastatin [Lipitor] 40 mg PO HS #30 tab 11/09/16 Dicyclomine [Bentyl] 10 mg PO QID #120 cap 11/09/16 Pantoprazole [Protonix EC Tab] 40 mg PO DAILY #30 ect 11/09/16 Sulfamethoxazole/Trimethoprim 1 tab PO BID #20 tab 06/17/17 [Bactrim DS 800 mg-160 mg] - Allergies Allergies/Adverse Reactions: Allergies Allergy/AdvReac Type Severity Reaction Status Date / Time phenytoin [From Dilantin] Allergy RASH Verified 06/17/17 09:28 Review of Systems ROS Statement: Except As Marked, All Systems Reviewed And Found Negative Constitutional: Negative for: Fever, Chills Gastrointestinal: Negative for: Nausea, Vomiting Genitourinary Female: Positive for: Dysuria, Hematuria Musculoskeletal: Negative for: Back Pain Physical Exam - Reviewed Nursing Documentation Reviewed: Yes Vital Signs Reviewed: Yes - Physical Exam Cardiovascular/Chest: Positive for: Regular Rate, Rhythm Respiratory: Positive for: Normal Breath Sounds. Negative for: Respiratory Distress Gastrointestinal/Abdominal: Positive for: Normal Exam, Soft, Tenderness (Mild suprapubic tendenress). Negative for: Other (RUQ tenderness) Back: Positive for: Normal Inspection. Negative for: L CVA Tenderness, R CVA Tenderness Extremity: Negative for: Tenderness, Swelling Neurologic/Psych: Positive for: Alert, Oriented (x 3). Negative for: Motor/ Sensory Deficits - Laboratory Results Result Diagrams: 06/17/17 09:50 06/17/17 09:50 - ECG O2 Sat by Pulse Oximetry: 97 (RA) Medical Decision Making Medical Decision Making: Time: 09:43 Plan: - CMP - ED Urine Dipstick - CBC - Blood Culture - Urine Culture - Abdomen Limited (GB included) Ultrasound Scribe Attestation: Documented by Jomra Tellez, acting as a scribe for Nilton Hewitt MD Provider Scribe Attestation: All medical record entries made by the Scribe were at my direction and personally dictated by me. I have reviewed the chart and agree that the record accurately reflects my personal performance of the history, physical exam, medical decision making, and the department course for this patient. I have also personally directed, reviewed, and agree with the discharge instructions and disposition. Disposition - Clinical Impression Clinical Impression: Urinary tract infection - Patient ED Disposition Is Patient to be Admitted: No Counseled Patient/Family Regarding: Studies Performed, Diagnosis, Need For Followup, Rx Given - Disposition Referrals: Nabil Dixon MD, PhD [Staff Provider] - Disposition: Routine/Home Disposition Time: 12:31 Condition: FAIR Prescriptions: Sulfamethoxazole/Trimethoprim [Bactrim DS 800 mg-160 mg] 1 tab PO BID #20 tab Instructions: Urinary Tract Infections in Adults Forms: [facility] ([place])
[2017-06-17 10:11] LABS: BASO % 0.6 % (0.0-2.0); EOS % 0.4 % (0.0-4.0); HEMOGLOBIN 12.8 g/dL (12.0-16.0); LYMPH # 1.5 K/uL (1.0-4.3); LYMPH % 20.5 % (20.0-40.0); MEAN CELL VOLUME 87.3 fl (81.0-99.0); MEAN CORPUSCULAR HEMOGLOBIN 29.8 pg (27.0-31.0); MEAN CORPUSCULAR HGB CONC 34.1 g/dL (33.0-37.0); MEAN PLATELET VOLUME 8.4 fl (7.2-11.7); MONO # 0.5 K/uL (0.0-0.8); MONO % 6.7 % (0.0-10.0); NEUT # 5.4 K/uL (1.8-7.0); NEUT % 71.8 % (50.0-75.0); RBC 4.28 Mil/uL (3.80-5.20); RED CELL DISTRIBUTION WIDTH 13.3 % (11.5-14.5); WHITE BLOOD COUNT 7.5 K/uL (4.8-10.8)
[2017-06-17 10:27] LABS: ALB/GLOB RATIO 1.5 (1.0-2.1); ALT/SGPT 39 U/L (9-52); AST/SGOT 32 U/L (14-36); BLOOD UREA NITROGEN 17 mg/dl (7-17); CALCIUM 9.4 mg/dL (8.4-10.2); GFR AFRICAN-AMERICAN > 60; GFR NON-AFRICAN AMERICAN > 60
--- NOTE | 2017-06-17 11:55 | US ---
HISTORY: h/o gallstones COMPARISON: 11/06/2016 TECHNIQUE: Sonographic evaluation of the right upper quadrant of the abdomen. FINDINGS: LIVER: Measures 14.4 cm in length. Hepatopedal blood flow. Fatty infiltration manifest ultrasonographically as increased echogenicity of the liver parenchyma. No mass. No intrahepatic bile duct dilatation. GALLBLADDER: Cholelithiasis. Negative study for gallbladder wall thickening, pericholecystic fluid, sonographic Chavez's sign. COMMON BILE DUCT: Measures 4.45 mm. No stones. No dilatation. PANCREAS: Unremarkable as visualized. No mass. No ductal dilatation. RIGHT KIDNEY: Measures 4.3 x 10.2 cm in length. Normal echogenicity. No calculus, mass, or hydronephrosis. AORTA: No aneurysmal dilatation. IVC: Unremarkable. OTHER FINDINGS: None . IMPRESSION: Cholelithiasis. No sonographic evidence of acute cholecystitis. Hepatic steatosis without focal abnormality
[2017-06-17 12:43] VITALS: BP 150/76; PULSE 79; RESP 18; TEMP 98.6; O2SAT 98
== END 2017-06-17 12:47 | disposition home or self-care (01) ==
LOC: H.ER 09:12
DX: N39.0 Urinary tract infection, site not specified (principal); E78.00 Pure hypercholesterolemia, unspecified; F32.9 Major depressive disorder, single episode, unspecified; F41.9 Anxiety disorder, unspecified; I50.9 Heart failure, unspecified; K76.0 Fatty (change of) liver, not elsewhere classified; M81.0 Age-related osteoporosis without current pathological fracture

== ENCOUNTER 2017-07-16 07:50 | Day surgery (SDC) | payer MEDICARE, OTHER ==
[2017-07-16] MEDS ORDERED: Lactated Ringer's 500 ML IV ONE (09:23)
[2017-07-16] MEDS ORDERED: Methylene Blue 10 mg/mL(10ml) IV ONE (10:19)
[2017-07-16] MEDS ORDERED: Etomidate 20 mg/10ml Inj IV ONE (10:21)
[2017-07-16] MEDS ORDERED: Propofol 10 mg/ml Inj (20 ML) ONE (10:21)
[2017-07-16 10:52] VITALS: TEMP 97.3; O2SAT 100
[2017-07-16 11:08] VITALS: BP 144/52; PULSE 62; RESP 16
== END 2017-07-16 11:34 | disposition home or self-care (01) ==
LOC: H.ENDO 07:50
PROVIDERS: ATTEND Internal Medicine Gastroenterology
DX: Z86.010 Personal history of colon polyps (principal); I48.91 Unspecified atrial fibrillation; F41.9 Anxiety disorder, unspecified; D12.0 Benign neoplasm of cecum; D12.5 Benign neoplasm of sigmoid colon
CPT/HCPCS: 45385; 88305; J2001; J2704; J7120

== ENCOUNTER 2018-04-13 11:40 | Day surgery (SDC) | payer MEDICARE, OTHER ==
[2018-04-06 18:45] VITALS: BMI 23.0
[2018-04-13] MEDS ORDERED: Lactated Ringer's 1,000 ML IV ONE (12:22)
--- NOTE | 2018-04-13 12:30 | CP.SDSHP ---
Same Day Surgery H & P - History Proposed Procedure: LUmbar spondylosis Pre-Op Diagnosis: Lumbar medial branch nerve blocks - Previous Medical/Surgical History Cardiac: Hypertension Neuro: Backaches Pain: 8.Very Severe - Allergies Allergies: Allergies phenytoin [From Dilantin] Allergy (Verified 04/13/18 11:53) RASH - Physical Exam Vital Signs: Vital Signs 04/13/18 04/13/18 12:05 12:12 Temperature 97.8 F Pulse Rate 75 74 Respiratory 14 Rate Blood Pressure 126/64 O2 Sat by Pulse 97 Oximetry Neuro: WNL Heart: WNL Lungs: WNL - Impression Impression: LUmbar spondylosis Pt. Evaluated Today:Candidate for Anesthesia & Procedure: Yes Short Stay Discharge - Short Stay Discharge Admitting Diagnosis/Reason for Visit: M47.816 Disposition: HOME/ ROUTINE
[2018-04-13] MEDS ORDERED: methylPREDNISolone Depo 80 mg/ml Inj ONE (13:37)
[2018-04-13] MEDS ORDERED: Bupivacaine 0.5% Inj(30mL) IJ ONE (13:51)
[2018-04-13] MEDS ORDERED: Midazolam 2 MG/2 ML VIAL ONE (13:51)
[2018-04-13] MEDS ORDERED: methylPREDNISolone Depo 80 mg/ml Inj IM ONE (13:51)
[2018-04-13] MEDS ORDERED: Lidocaine 1% Inj (20ml) IJ ONE (13:51)
[2018-04-13] MEDS ORDERED: Lactated Ringer's 1,000 ML IV SCH (14:15)
[2018-04-13 16:12] VITALS: RESP 18; TEMP 97.8
[2018-04-13 17:23] VITALS: BP 156/60; PULSE 66; O2SAT 97
--- NOTE | 2018-04-14 01:46 | OP ---
PROCEDURE DATE: 04/13/2018 PREOPERATIVE DIAGNOSIS: Lumbar spondylosis. POSTOPERATIVE DIAGNOSIS: Lumbar spondylosis. PROCEDURE: Bilateral L3, L4, and L5 medial branch nerve block. SURGEON: Reece Sneed MD ANESTHESIOLOGIST: Connor Calvillo MD TYPE OF ANESTHESIA: Monitored anesthesia care. COMPLICATIONS: None. SPECIMEN: None. DESCRIPTION OF PROCEDURE: After we had a discussion of the procedure with the patient including its risks, benefits, alternatives, outcome data, possibility of no effect or increased pain, the patient consented to the procedure. She denies any recent infection, bleeding tendencies, or being on anticoagulants. Decision was then made to proceed to the OR. The patient was placed on the fluoroscopy table in a prone position with two pillows underneath her abdomen. The back was prepped and draped in the usual sterile fashion and a sterile technique was adhered to during the entire procedure. The L3, L4, and L5 median branch nerves were located at the intersection of the superior articular process and the transverse process of the L4 and L5 pedicles along with the sacral ala. The procedure was first performed on the right side by turning the fluoroscopy towards the right at approximately 15 degrees. The skin overlying the above targeted areas was then infiltrated with 1% lidocaine using 25-gauge needle. Subsequently, a 22-gauge 3.5-inch spinal needle was incrementally advanced under fluoroscopic guidance until tip of the needle made bony contact with three targeted areas. After satisfactory positioning of both needles, approximately 2 mL of 0.5% Marcaine and Depo-Medrol mixture was injected. The needle was then removed and same exact procedure was performed on the contralateral left side using the same medications and techniques. At the end of the case, the patient's back was cleaned and dry bandage was applied. The patient was then transferred to recovery area in good condition without any signs of [employer] toxicity or any neurological deficit. She will have a followup in our office in approximately two to four weeks. Reece Sneed MD
--- NOTE | 2018-04-14 14:06 | RAD ---
Date of service: 04/13/2018 PROCEDURE: Intraoperative Fluoroscopy. HISTORY: PAIN MANAGEMENT FINDINGS: Fluoroscopic assistance was provided. Fluoroscopy time = 20 sec. Radiation dose = 2.42 mGy. Please refer to the operative report from JAGDISH Goss.
== END 2018-04-13 17:00 | disposition home or self-care (01) ==
LOC: H.OPSURG 11:40
PROVIDERS: ATTEND Anesthesiology
DX: M47.816 Spondylosis without myelopathy or radiculopathy, lumbar region (principal); M19.90 Unspecified osteoarthritis, unspecified site; E78.5 Hyperlipidemia, unspecified; I50.9 Heart failure, unspecified; I11.0 Hypertensive heart disease with heart failure
CPT/HCPCS: 64493; 64494; J1040; J2250; J3010; J7120

== ENCOUNTER 2018-07-07 07:38 | Day surgery (SDC) | payer MEDICARE, OTHER ==
[2018-07-07 07:55] VITALS: BMI 22.4
[2018-07-07] MEDS ORDERED: Bupivacaine HCl 0.5% PF (30 ml) Inj ONE (08:20)
[2018-07-07] MEDS ORDERED: Lidocaine 1% Inj (20ml) ONE (08:20)
[2018-07-07] MEDS ORDERED: methylPREDNISolone Depo 80 mg/ml Inj ONE (08:20)
--- NOTE | 2018-07-07 08:20 | CP.SDSHP ---
Same Day Surgery H & P - History Proposed Procedure: Lumbar medial branch nerve block and radiofrequency Pre-Op Diagnosis: Lumbar spondylosis - Previous Medical/Surgical History Pain: 8.Very Severe - Allergies Allergies: Allergies phenytoin [From Dilantin] Allergy (Verified 07/07/18 07:56) RASH - Physical Exam Vital Signs: Vital Signs 07/07/18 08:01 Temperature 97.9 F Pulse Rate 68 Respiratory 18 Rate Blood Pressure 146/77 O2 Sat by Pulse 97 Oximetry Neuro: WNL Heart: WNL Lungs: WNL - Impression Impression: Lumbar spondylosis Pt. Evaluated Today:Candidate for Anesthesia & Procedure: Yes Short Stay Discharge - Short Stay Discharge Admitting Diagnosis/Reason for Visit: M47.816 Disposition: HOME/ ROUTINE
[2018-07-07] MEDS ORDERED: Lactated Ringer's 1,000 ML IV ONE (08:42)
[2018-07-07] MEDS ORDERED: Midazolam 2 MG/2 ML VIAL ONE (09:09)
[2018-07-07] MEDS ORDERED: Lidocaine 2% MPF (5 ml) Inj INJ ONE (09:35)
[2018-07-07] MEDS ORDERED: Lidocaine 2% MPF (5 ml) Inj ONE (09:35)
[2018-07-07] MEDS ORDERED: Lactated Ringer's 1,000 ML IV SCH (10:00)
[2018-07-07 11:20] VITALS: O2SAT 97
[2018-07-07 12:09] VITALS: BP 164/64; PULSE 66; RESP 20; TEMP 98.6
--- NOTE | 2018-07-07 13:22 | RAD ---
Date of service: 07/07/2018 PROCEDURE: Lumbar Epidural Injection HISTORY: PAIN MANAGEMENT TECHNIQUE: Fluoroscopic guidance was provided for epidural injection for pain management purposes. FINDINGS: Fluoroscopic guidance provided for epidural injection. Fluoroscopy time = 46.2 sec. Radiation dose = 5.68 mGy. Please refer to the report from JAGDISH Goss for further elaboration on the procedure.
--- NOTE | 2018-07-07 15:26 | OP ---
PROCEDURE DATE: 07/07/2018 PREOPERATIVE DIAGNOSIS: Lumbar spondylosis. POSTOPERATIVE DIAGNOSIS: Lumbar spondylosis. PROCEDURE: Bilateral L3, L4, and L5 medial branch nerve radiofrequency. ANESTHESIOLOGIST: Dr. Teran. SURGEON: Reece Sneed MD TYPE OF ANESTHESIA: Monitored anesthesia care. COMPLICATIONS: None. SPECIMEN: None. DESCRIPTION OF PROCEDURE: After we had a discussion of the procedure with the patient including its risks, benefits, alternatives, outcome data, possibility of no effect or increased pain, the patient consented to the procedure. She denies any recent infection, bleeding tendencies, or being on anticoagulants. Decision was then made to proceed to the OR. The patient was placed on the fluoroscopy table in a prone position with two pillows underneath her abdomen. The back was prepped and draped in the usual sterile fashion and a sterile technique was adhered to during the entire procedure. The L3 and L4 median branch nerves were located at the intersection of the superior articular process and the transverse process of the L4 and L5 pedicles. The L5 dorsal medial nerve is located at the sacral ala. The procedure was first performed on the right side by turning the fluoroscopy towards the right at approximately 15 degrees. The skin overlying the three above targeted areas was then infiltrated with 1% lidocaine using 25-gauge needle. Subsequently, a 22-gauge 3.5-inch Stimuplex needle was incrementally advanced under fluoroscopic guidance until tip of the needle made bony contact with all three targets. After satisfactory positioning of all three needles, sensory and motor testing was carried out with satisfactory results. At this point, each nerve was anesthetize with 1% lidocaine. Radiofrequency was then carried out at 80 degrees Celsius for approximately 1-1/2 minutes. At the end of the procedure, each nerve was treated with a combination of 0.5% Marcaine and Depo-Medrol. The needle was then removed and the same exact procedure was repeated on the contralateral left side using the same medications and techniques. At the end of the case, the patient's back was cleaned and dry bandages were applied. The patient was then transferred to the recovery area in good conditions without any signs of [employer] toxicity or any neurological deficit. She will have a followup in our office in approximately two to four weeks. En-Yuri Sneed MD [facility] # [id number]
== END 2018-07-07 12:15 | disposition home or self-care (01) ==
LOC: H.OPSURG 07:38
PROVIDERS: ATTEND Anesthesiology
DX: M47.816 Spondylosis without myelopathy or radiculopathy, lumbar region (principal)
CPT/HCPCS: 62282; 77003; J1040; J2250; J2405; J3010; J7120